=== PATIENT | female | born 1945 | race Two or more races ===

== ENCOUNTER → 2017-08-16 | Outpatient (CLI) | payer MEDICARE, MEDICAID | END | disposition home or self-care (01) | LOC: WOUND 09:12 | PROVIDERS: ATTEND Family Medicine | DX: E11.622 Type 2 diabetes mellitus with other skin ulcer (principal); L97.212 Non-pressure chronic ulcer of right calf with fat layer exposed; I48.0 Paroxysmal atrial fibrillation; E66.01 Morbid (severe) obesity due to excess calories; E03.9 Hypothyroidism, unspecified; E78.5 Hyperlipidemia, unspecified; G47.33 Obstructive sleep apnea (adult) (pediatric); I11.0 Hypertensive heart disease with heart failure; I50.30 Unspecified diastolic (congestive) heart failure; Z79.01 Long term (current) use of anticoagulants; Z72.89 Other problems related to lifestyle; Z68.41 Body mass index [BMI] 40.0-44.9, adult | CPT/HCPCS: 11042; G0463; 99205; WOU0463 ==

== ENCOUNTER 2017-09-21 04:02 | Inpatient (IN) | payer MEDICARE, MEDICAID ==
[~2017-09-21] VITALS: Ht 149.9 cm; Wt 106.6 kg
[2017-09-21] MEDS ORDERED: SODIUM CHLORIDE FLUSH 10ML SYR IVF ONE (05:30)
[2017-09-21] MEDS ORDERED: MAALOX/HYOSCYAMINE/LIDOCAINE 45 ML BTL PO ONE (05:30)
[2017-09-21] MEDS ORDERED: ONDANSETRON 2MG/ML, 2ML IVPush ONE (05:30)
[2017-09-21] MEDS ORDERED: FAMOTIDINE 20 MG/2 ML IVP ONE (05:30)
[2017-09-21] MEDS ORDERED: MORPHINE SULFATE 4 MG/ML, 1ML IVPush PRN (05:30)
[2017-09-21] MEDS ORDERED: MORPHINE SULFATE 4 MG/ML, 1ML ONE (05:49)
[2017-09-21] MEDS ORDERED: MAALOX/HYOSCYAMINE/LIDOCAINE 45 ML BTL ONE (05:49)
[2017-09-21] MEDS ORDERED: ONDANSETRON 2MG/ML, 2ML ONE (05:49)
[2017-09-21] MEDS ORDERED: FAMOTIDINE 20 MG/2 ML ONE (05:50)
[2017-09-21 06:27] LABS: INTERNATIONAL NORMALIZED RATIO 1.74 (0.93-1.1); PROTHROMBIN TIME 17.9 Seconds (9.6-11.5)
[2017-09-21 06:29] LABS: MEAN CORPUSCULAR HEMOGLOBIN 31.4 pg (27.0-34.8); MEAN CORPUSCULAR VOLUME 92.1 fL (80-100); MEAN PLATELET VOLUME 10.1 fL (7.4-10.4); PLATELET COUNT 136 x10^3/uL (130-400); RED BLOOD COUNT 3.55 x10^6/uL (3.82-5.3); RED CELL DISTRIBUTION WIDTH 23.3 % (9.6-15.2)
[2017-09-21 06:32] LABS: ALBUMIN 2.9 g/dL (3.4-5.0); ANION GAP 16 mmol/L (5-15); CALCIUM 8.1 mg/dL (8.5-10.1); CHLORIDE 78 mmol/L (98-107)
[2017-09-21 06:35] LABS: ALANINE AMINOTRANSFERASE 31 U/L (12-78); ALKALINE PHOSPHATASE 158 U/L (45-117); BILIRUBIN,TOTAL 2.9 mg/dL (0.2-1.0); CREATININE 0.57 mg/dL (0.55-1.02); TOTAL PROTEIN 7.5 g/dL (6.4-8.2)
[2017-09-21 06:39] LABS: ACETONE, SERUM Negative (Negative)
[2017-09-21 06:53] LABS: ANISOCYTOSIS 2+; BASOPHILS # (AUTO) 0.08 x10^3/uL (0-0.1); BASOPHILS % (AUTO) 2 % (0-1); EOSINOPHILS # (AUTO) 0.08 x10^3/uL (0-0.4); EOSINOPHILS % (AUTO) 2 % (1-7); LYMPHOCYTES # (AUTO) 0.75 x10^3/uL (1-3.4); LYMPHOCYTES % (AUTO) 16 % (22-44); MD MORPH REVIEW ONLY; MONOCYTES # (AUTO) 0.49 x10^3/uL (0.2-0.8); MONOCYTES % (AUTO) 11 % (2-9); NEUTROPHILS # (AUTO) 3.24 x10^3/uL (1.8-6.8); NEUTROPHILS % (AUTO) 70 % (42-75)
[2017-09-21 06:54] LABS: MICROCYTOSIS 1+; POLYCHROMASIA 1+; TARGET CELLS 1+
[2017-09-21 06:55] LABS: <PLATELET ESTIMATE> ADEQUATE; LARGE PLATELETS 1+
[2017-09-21 07:13] LABS: TROPONIN I 0.043 ng/mL (0.000-0.045)
[2017-09-21] MEDS ORDERED: POTASSIUM CHLORIDE 40 MEQ in SODIUM CHLORIDE 0.9% 500 ML IV ONE (08:00)
[2017-09-21] MEDS ORDERED: METF500T4 PO (08:17)
[2017-09-21] MEDS ORDERED: BUME1TAB21 PO (08:17)
[2017-09-21] MEDS ORDERED: ATOR20TA PO (08:17)
[2017-09-21] MEDS ORDERED: METO2.5T PO (08:17)
[2017-09-21] MEDS ORDERED: SULF1TAB24 PO (08:17)
[2017-09-21] MEDS ORDERED: WARF5TAB7 PO (08:17)
[2017-09-21] MEDS ORDERED: LEVO150T5 PO (08:17)
[2017-09-21] MEDS ORDERED: POTA20TA14 PO (08:17)
[2017-09-21] MEDS ORDERED: METO50TA82 PO (08:17)
[2017-09-21] MEDS ORDERED: GLUCAGON 1 MG IM PRN (08:30)
[2017-09-21] MEDS ORDERED: DEXTROSE 4 GM TAB.CHEW PO PRN (08:30)
[2017-09-21] MEDS ORDERED: ACETAMINOPHEN 325 MG TABLET PO PRN (08:30)
[2017-09-21] MEDS ORDERED: POTASSIUM CHLORIDE 40 MEQ in D5%-LACTATED RINGERS 1,000 ML IV SCH (08:30)
[2017-09-21] MEDS ORDERED: LACTULOSE 3.3 GM/5 ML ORAL.SOL RC ONE (08:30)
[2017-09-21] MEDS ORDERED: ONDANSETRON 2MG/ML, 2ML IVPush PRN (08:30)
[2017-09-21] MEDS ORDERED: DEXTROSE 50%, 50ML SYRINGE IVPush PRN (08:30)
[2017-09-21] MEDS ORDERED: LIDOCAINE 1%, 10ML ONE (08:31)
[2017-09-21] MEDS ORDERED: BUMETANIDE 1 MG TABLET PO SCH (09:00)
[2017-09-21] MEDS ORDERED: METOPROLOL TARTRATE 50 MG TABLET PO SCH (09:00)
[2017-09-21] MEDS ORDERED: POTASSIUM CHLORIDE 20 MEQ TAB.ER.PRT ONE (09:10)
[2017-09-21] MEDS: POTASSIUM CHLORIDE 20 MEQ TAB.ER.PRT PO SCH ×3 (09:12→17:19)
[2017-09-21 10:35] VITALS: BP 126/82
[2017-09-21 11:04] VITALS: BP 139/84
[2017-09-21] MEDS: BUMETANIDE 1 MG TABLET PO SCH ×2 (12:23→20:17)
[2017-09-21] MEDS: SULFAMETH./TRIMETHOPRIM DS 800MG/160MG TABLET PO SCH ×2 (12:23→20:17)
[2017-09-21] MEDS: LEVOTHYROXINE 150 MCG TABLET PO SCH (12:23)
[2017-09-21] MEDS: METOPROLOL TARTRATE 50 MG TABLET PO SCH ×2 (12:24→20:18)
[2017-09-21] MEDS: RIFAXIMIN 550 MG TABLET PO SCH ×2 (12:24→20:18)
[2017-09-21] MEDS: SODIUM CHLORIDE FLUSH 10ML SYR IVF SCH ×2 (12:24→20:17)
[2017-09-21] MEDS: INSULIN ASPART 100 UNITS/ML, PEN SQ-INSULIN SCH ×3 (13:14→20:26)
[2017-09-21 14:30] VITALS: BP 116/75
[2017-09-21] MEDS: LACTULOSE 20 GM/30 ML UDC PO SCH ×4 (15:46→21:00)
[2017-09-21 20:18] VITALS: BP 132/80
[2017-09-21] MEDS: ATORVASTATIN 20 MG TABLET PO SCH (20:18)
[2017-09-22 05:22] LABS: CHLORIDE 81 mmol/L (98-107)
[2017-09-22 05:31] LABS: ANION GAP 11 mmol/L (5-15); CREATININE 0.77 mg/dL (0.55-1.02)
[2017-09-22 06:13] LABS: BASOPHILS # (AUTO) 0.02 x10^3/uL (0-0.1); BASOPHILS % (AUTO) 1 % (0-1); EOSINOPHILS # (AUTO) 0.09 x10^3/uL (0-0.4); EOSINOPHILS % (AUTO) 2 % (1-7); LYMPHOCYTES % (AUTO) 16 % (22-44); MD MORPH REVIEW ONLY; MEAN CORPUSCULAR HEMOGLOBIN 31.5 pg (27.0-34.8); MEAN CORPUSCULAR HGB CONC 33.5 g/dL (32.4-35.8); MEAN PLATELET VOLUME 9.7 fL (7.4-10.4); MONOCYTES # (AUTO) 0.67 x10^3/uL (0.2-0.8); MONOCYTES % (AUTO) 15 % (2-9); NEUTROPHILS # (AUTO) 2.84 x10^3/uL (1.8-6.8); NEUTROPHILS % (AUTO) 66 % (42-75); PLATELET COUNT 137 x10^3/uL (130-400); RED BLOOD COUNT 3.43 x10^6/uL (3.82-5.3); RED CELL DISTRIBUTION WIDTH 24.1 % (9.6-15.2)
[2017-09-22 06:14] LABS: ANISOCYTOSIS 2+; MICROCYTOSIS 1+; POLYCHROMASIA 1+
[2017-09-22 06:15] LABS: <PLATELET ESTIMATE> ADEQUATE; TARGET CELLS 1+
[2017-09-22 06:16] LABS: LARGE PLATELETS 1+
[2017-09-22 06:35] LABS: INTERNATIONAL NORMALIZED RATIO 2.09 (0.93-1.1); PROTHROMBIN TIME 21.4 Seconds (9.6-11.5)
[2017-09-22] MEDS: INSULIN ASPART 100 UNITS/ML, PEN SQ-INSULIN SCH ×4 (07:00→20:29)
[2017-09-22] MEDS ORDERED: MAGNESIUM SULFATE PMX 2GM/50ML 50 ML IV ONE (08:00)
[2017-09-22] MEDS ORDERED: POTASSIUM CHLORIDE 20 MEQ TAB.ER.PRT PO ONE ×3 (08:00→21:30)
[2017-09-22 08:42] VITALS: BP 118/65
[2017-09-22] MEDS ORDERED: FUROSEMIDE 40 MG/4 ML ONE (08:53)
[2017-09-22] MEDS ORDERED: FUROSEMIDE 20 MG/2 ML ONE (08:53)
[2017-09-22 08:57] LABS: ALBUMIN 2.9 g/dL (3.4-5.0); ANION GAP 12 mmol/L (5-15); CALCIUM 8.1 mg/dL (8.5-10.1); CHLORIDE 83 mmol/L (98-107); CREATININE 0.69 mg/dL (0.55-1.02)
[2017-09-22] MEDS: FOLIC ACID 1 MG TABLET PO SCH (09:00)
[2017-09-22] MEDS ORDERED: FUROSEMIDE 100 MG/10 ML IV ONE (09:00)
[2017-09-22 09:05] LABS: TROPONIN I 0.038 ng/mL (0.000-0.045)
[2017-09-22 09:17] LABS: FREE T4 (FREE THYROXINE) 1.32 ng/dL (0.76-1.46); THYROID STIMULATING HORMONE 10.7 mIU/L (0.358-3.740)
[2017-09-22] MEDS: RIFAXIMIN 550 MG TABLET PO SCH ×2 (09:28→20:26)
[2017-09-22] MEDS: THIAMINE 100MG TABLET PO SCH (09:29)
[2017-09-22] MEDS: METOPROLOL TARTRATE 50 MG TABLET PO SCH ×2 (09:29→20:26)
[2017-09-22] MEDS: LEVOTHYROXINE 150 MCG TABLET PO SCH (09:29)
[2017-09-22] MEDS: LACTULOSE 20 GM/30 ML UDC PO SCH ×3 (09:29→20:27)
[2017-09-22] MEDS: SODIUM CHLORIDE FLUSH 10ML SYR IVF SCH ×2 (09:30→20:29)
[2017-09-22 12:03] LABS: MICROSCOPIC NOT IND
[2017-09-22 12:08] LABS: OSMOLALITY,URINE 250 mOsm/kg (500-850)
[2017-09-22 12:10] LABS: CHLORIDE,URINE RANDOM 120 mmol/L; POTASSIUM,URINE RANDOM 30 mmol/L; SODIUM,URINE RANDOM 86 mmol/L
[2017-09-22 12:12] LABS: CREATININE,URINE RANDOM < 13.00 mg/dL
[2017-09-22 12:38] LABS: CULTURE INDICATED? NO
[2017-09-22 13:17] LABS: ANION GAP 10 mmol/L (5-15); CALCIUM 8.1 mg/dL (8.5-10.1); CHLORIDE 83 mmol/L (98-107); CREATININE 0.71 mg/dL (0.55-1.02)
[2017-09-22 13:56] VITALS: BP 121/80
[2017-09-22] MEDS ORDERED: POTASSIUM CHLORIDE 20 MEQ TAB.ER.PRT PO SCH (17:00)
[2017-09-22] MEDS ORDERED: FUROSEMIDE 40 MG/4 ML IV SCH (17:00)
[2017-09-22 17:25] LABS: ANION GAP 8 mmol/L (5-15); CALCIUM 8.2 mg/dL (8.5-10.1); CHLORIDE 83 mmol/L (98-107); CREATININE 0.78 mg/dL (0.55-1.02)
[2017-09-22] MEDS ORDERED: WARFARIN 5 MG TABLET PO-COUM ONE (18:00)
[2017-09-22] MEDS ORDERED: WARFARIN 5 MG TABLET PO-COUM SCH (18:00)
[2017-09-22 19:21] VITALS: BP 136/80
[2017-09-22] MEDS: ATORVASTATIN 20 MG TABLET PO SCH (20:26)
[2017-09-22] MEDS ORDERED: LORazepam 2 MG/ML, 1ML IV PRN ×5 (21:30)
[2017-09-22] MEDS ORDERED: LORazepam 1MG TABLET PO PRN ×4 (21:30)
[2017-09-22] MEDS ORDERED: LORazepam 0.5MG TABLET PO PRN (21:30)
[2017-09-23 03:04] VITALS: BP 117/74
[2017-09-23] MEDS ORDERED: LEVOTHYROXINE 75 MCG TABLET ONE (05:01)
[2017-09-23] MEDS: LACTULOSE 20 GM/30 ML UDC PO SCH ×4 (05:15→20:24)
[2017-09-23] MEDS: LEVOTHYROXINE 150 MCG TABLET PO SCH (05:16)
[2017-09-23 05:19] LABS: INTERNATIONAL NORMALIZED RATIO 1.97 (0.93-1.1); PROTHROMBIN TIME 20.2 Seconds (9.6-11.5)
[2017-09-23 05:24] LABS: MEAN CORPUSCULAR HEMOGLOBIN 31.3 pg (27.0-34.8); MEAN CORPUSCULAR HGB CONC 33.2 g/dL (32.4-35.8); MEAN CORPUSCULAR VOLUME 94.4 fL (80-100); MEAN PLATELET VOLUME 9.4 fL (7.4-10.4); PLATELET COUNT 120 x10^3/uL (130-400); RED BLOOD COUNT 3.39 x10^6/uL (3.82-5.3); RED CELL DISTRIBUTION WIDTH 24.5 % (9.6-15.2)
[2017-09-23 05:25] LABS: ALBUMIN 2.9 g/dL (3.4-5.0); ANION GAP 8 mmol/L (5-15); CALCIUM 8.1 mg/dL (8.5-10.1); CHLORIDE 84 mmol/L (98-107); CREATININE 0.82 mg/dL (0.55-1.02)
[2017-09-23 05:57] LABS: BASOPHILS # (AUTO) 0.01 x10^3/uL (0-0.1); BASOPHILS % (AUTO) 0 % (0-1); EOSINOPHILS # (AUTO) 0.14 x10^3/uL (0-0.4); EOSINOPHILS % (AUTO) 4 % (1-7); LYMPHOCYTES # (AUTO) 0.68 x10^3/uL (1-3.4); LYMPHOCYTES % (AUTO) 21 % (22-44); MD SCAN; MONOCYTES # (AUTO) 0.62 x10^3/uL (0.2-0.8); MONOCYTES % (AUTO) 20 % (2-9); NEUTROPHILS % (AUTO) 54 % (42-75)
[2017-09-23] MEDS: INSULIN ASPART 100 UNITS/ML, PEN SQ-INSULIN SCH ×4 (07:00→20:28)
[2017-09-23] MEDS ORDERED: MAGNESIUM SULFATE PMX 2GM/50ML 50 ML IV ONE (07:30)
[2017-09-23] MEDS ORDERED: POTASSIUM CHLORIDE 20 MEQ TAB.ER.PRT PO ONE (07:30)
[2017-09-23 08:02] VITALS: BP 125/67
[2017-09-23 08:02] LABS: HCT (SEDRATE) 31.2 % (34.6-47.8)
[2017-09-23] MEDS: FUROSEMIDE 40 MG/4 ML IV SCH ×2 (08:04→16:45)
[2017-09-23] MEDS: METOPROLOL TARTRATE 50 MG TABLET PO SCH ×2 (09:00→20:25)
[2017-09-23] MEDS: SPIRONOLACTONE 50 MG TABLET PO SCH ×2 (09:00→20:26)
[2017-09-23] MEDS: DOXYCYCLINE 100MG TABLET PO SCH ×2 (11:47→20:25)
[2017-09-23] MEDS: RIFAXIMIN 550 MG TABLET PO SCH ×2 (11:48→20:27)
[2017-09-23] MEDS: THIAMINE 100MG TABLET PO SCH (11:48)
[2017-09-23] MEDS: FOLIC ACID 1 MG TABLET PO SCH (11:48)
[2017-09-23] MEDS: CEFTRIAXONE PMX 2GM/50ML 50 ML IV SCH (11:49)
[2017-09-23] MEDS: SODIUM CHLORIDE FLUSH 10ML SYR IVF SCH ×2 (11:50→20:29)
[2017-09-23 13:28] VITALS: BP 104/69
[2017-09-23 17:50] LABS: ANION GAP 8 mmol/L (5-15); CALCIUM 8.2 mg/dL (8.5-10.1); CHLORIDE 82 mmol/L (98-107); CREATININE 0.85 mg/dL (0.55-1.02)
[2017-09-23] MEDS ORDERED: WARFARIN 7.5 MG TABLET PO-COUM ONE (18:00)
[2017-09-23] MEDS: POTASSIUM CHLORIDE 20 MEQ TAB.ER.PRT PO SCH ×3 (18:12→23:09)
[2017-09-23 18:47] VITALS: BP 112/77
[2017-09-23] MEDS: ATORVASTATIN 20 MG TABLET PO SCH (20:27)
[2017-09-23 23:08] LABS: ANION GAP 7 mmol/L (5-15); CALCIUM 8.3 mg/dL (8.5-10.1); CHLORIDE 84 mmol/L (98-107); CREATININE 0.88 mg/dL (0.55-1.02)
[2017-09-24] MEDS ORDERED: MAGNESIUM SULFATE PMX 2GM/50ML 50 ML IV ONE (00:30)
[2017-09-24 02:30] VITALS: BP 120/80
[2017-09-24] MEDS: LACTULOSE 20 GM/30 ML UDC PO SCH ×4 (04:58→20:17)
[2017-09-24 05:50] LABS: INTERNATIONAL NORMALIZED RATIO 1.73 (0.93-1.1); PROTHROMBIN TIME 17.8 Seconds (9.6-11.5)
[2017-09-24 05:54] LABS: ANION GAP 6 mmol/L (5-15); CHLORIDE 85 mmol/L (98-107)
[2017-09-24 06:02] LABS: MEAN CORPUSCULAR HEMOGLOBIN 30.7 pg (27.0-34.8); MEAN CORPUSCULAR HGB CONC 32.6 g/dL (32.4-35.8); MEAN CORPUSCULAR VOLUME 94.4 fL (80-100); MEAN PLATELET VOLUME 9.6 fL (7.4-10.4); PLATELET COUNT 123 x10^3/uL (130-400); RED BLOOD COUNT 3.51 x10^6/uL (3.82-5.3); RED CELL DISTRIBUTION WIDTH 25.1 % (9.6-15.2)
[2017-09-24 06:08] LABS: ALANINE AMINOTRANSFERASE 28 U/L (12-78); ALBUMIN 2.9 g/dL (3.4-5.0); ALKALINE PHOSPHATASE 141 U/L (45-117); BILIRUBIN,TOTAL 1.3 mg/dL (0.2-1.0); CALCIUM 8.2 mg/dL (8.5-10.1); CREATININE 0.83 mg/dL (0.55-1.02)
[2017-09-24 06:21] LABS: MD YES
[2017-09-24 06:25] LABS: ANISOCYTOSIS 2+; BASOS#(MANUAL) 0.06 x10^3/uL (0-0.1); BASOS% (MANUAL) 2 % (0-1); EOS#(MANUAL) 0.19 x10^3/uL (0.0-0.4); EOS% (MANUAL) 6 % (1-7); LYMPH#(MANUAL) 0.65 x10^3/uL (1-3.4); LYMPHS% (MANUAL) 21 % (22-44); MICROCYTOSIS 1+; MONOS#(MANUAL) 0.19 x10^3/uL (0.3-2.7); MONOS% (MANUAL) 6 % (2-9); POLYCHROMASIA 1+; SEG#(MANUAL) 2.02 x10^3/uL (1.8-6.8); SEGS% (MANUAL) 65 % (42-75)
[2017-09-24 06:26] LABS: <PLATELET ESTIMATE> ADEQUATE; LARGE PLATELETS 1+; TARGET CELLS 1+
[2017-09-24] MEDS ORDERED: POTASSIUM CHLORIDE 20 MEQ TAB.ER.PRT PO ONE ×2 (07:00)
[2017-09-24] MEDS: INSULIN ASPART 100 UNITS/ML, PEN SQ-INSULIN SCH ×4 (07:00→20:26)
[2017-09-24 07:20] VITALS: BP 115/77
[2017-09-24] MEDS: CEFTRIAXONE PMX 2GM/50ML 50 ML IV SCH (08:02)
[2017-09-24] MEDS: FUROSEMIDE 40 MG/4 ML IV SCH ×2 (08:03→16:31)
[2017-09-24] MEDS ORDERED: REGADENOSON 0.4 MG/5 ML SYRINGE ONE (08:09)
[2017-09-24] MEDS: SPIRONOLACTONE 50 MG TABLET PO SCH ×2 (09:00→20:15)
[2017-09-24] MEDS: LEVOTHYROXINE 150 MCG TABLET PO SCH (10:08)
[2017-09-24] MEDS: FOLIC ACID 1 MG TABLET PO SCH (10:08)
[2017-09-24] MEDS: DOXYCYCLINE 100MG TABLET PO SCH ×2 (10:08→20:16)
[2017-09-24] MEDS: RIFAXIMIN 550 MG TABLET PO SCH ×2 (10:08→20:17)
[2017-09-24] MEDS: METOPROLOL TARTRATE 50 MG TABLET PO SCH ×2 (10:08→20:17)
[2017-09-24] MEDS: SODIUM CHLORIDE FLUSH 10ML SYR IVF SCH ×2 (10:08→20:28)
[2017-09-24] MEDS: THIAMINE 100MG TABLET PO SCH (10:09)
[2017-09-24 13:24] VITALS: BP 110/74
[2017-09-24 14:35] LABS: ANION GAP 9 mmol/L (5-15); CALCIUM 8.5 mg/dL (8.5-10.1); CHLORIDE 86 mmol/L (98-107)
[2017-09-24] MEDS ORDERED: WARFARIN 10 MG TABLET PO-COUM ONE (18:00)
[2017-09-24 20:15] VITALS: BP 102/68
[2017-09-24] MEDS: ATORVASTATIN 20 MG TABLET PO SCH (20:17)
[2017-09-25 02:49] VITALS: BP 104/64
[2017-09-25] MEDS: LACTULOSE 20 GM/30 ML UDC PO SCH ×4 (05:44→21:00)
[2017-09-25] MEDS: LEVOTHYROXINE 150 MCG TABLET PO SCH (05:47)
[2017-09-25 06:02] LABS: MEAN CORPUSCULAR HEMOGLOBIN 31.6 pg (27.0-34.8); MEAN CORPUSCULAR VOLUME 95.7 fL (80-100); MEAN PLATELET VOLUME 9.4 fL (7.4-10.4); PLATELET COUNT 111 x10^3/uL (130-400); RED BLOOD COUNT 3.43 x10^6/uL (3.82-5.3); RED CELL DISTRIBUTION WIDTH 25.2 % (9.6-15.2)
[2017-09-25 06:11] LABS: CHLORIDE 87 mmol/L (98-107)
[2017-09-25 06:15] LABS: ALBUMIN 2.9 g/dL (3.4-5.0); ANION GAP 10 mmol/L (5-15); CALCIUM 8.2 mg/dL (8.5-10.1); CREATININE 0.94 mg/dL (0.55-1.02)
[2017-09-25 06:34] LABS: MD YES
[2017-09-25 06:38] LABS: EOS#(MANUAL) 0.14 x10^3/uL (0.0-0.4); EOS% (MANUAL) 5 % (1-7); LYMPH#(MANUAL) 0.84 x10^3/uL (1-3.4); LYMPHS% (MANUAL) 31 % (22-44); NRBC % (MANUAL) 1 % (0-1)
[2017-09-25 06:39] LABS: BASOS#(MANUAL) 0.05 x10^3/uL (0-0.1); BASOS% (MANUAL) 2 % (0-1); MONOS#(MANUAL) 0.35 x10^3/uL (0.3-2.7); MONOS% (MANUAL) 13 % (2-9); SEG#(MANUAL) 1.32 x10^3/uL (1.8-6.8); SEGS% (MANUAL) 49 % (42-75)
[2017-09-25 06:40] LABS: ANISOCYTOSIS 2+; MICROCYTOSIS 1+
[2017-09-25 06:41] LABS: <PLATELET ESTIMATE> DECREASED; LARGE PLATELETS 1+; POLYCHROMASIA 1+; TARGET CELLS 1+
[2017-09-25 06:53] LABS: INTERNATIONAL NORMALIZED RATIO 2.13 (0.93-1.1); PROTHROMBIN TIME 21.8 Seconds (9.6-11.5)
[2017-09-25] MEDS ORDERED: POTASSIUM CHLORIDE 20 MEQ TAB.ER.PRT PO ONE (07:00)
[2017-09-25] MEDS: INSULIN ASPART 100 UNITS/ML, PEN SQ-INSULIN SCH ×2 (07:00→11:00)
[2017-09-25] MEDS: RIFAXIMIN 550 MG TABLET PO SCH ×2 (08:45→21:15)
[2017-09-25] MEDS: FOLIC ACID 1 MG TABLET PO SCH (08:46)
[2017-09-25] MEDS: DOXYCYCLINE 100MG TABLET PO SCH ×2 (08:46→21:15)
[2017-09-25] MEDS: SODIUM CHLORIDE FLUSH 10ML SYR IVF SCH ×2 (08:47→21:15)
[2017-09-25] MEDS: METOPROLOL TARTRATE 50 MG TABLET PO SCH ×2 (08:47→21:15)
[2017-09-25] MEDS: FUROSEMIDE 40 MG/4 ML IV SCH ×2 (08:47→17:49)
[2017-09-25] MEDS: SPIRONOLACTONE 50 MG TABLET PO SCH ×2 (08:47→21:00)
[2017-09-25] MEDS: THIAMINE 100MG TABLET PO SCH (08:47)
[2017-09-25] MEDS: CEFTRIAXONE PMX 2GM/50ML 50 ML IV SCH (08:48)
[2017-09-25 08:49] VITALS: BP 119/69
[2017-09-25] MEDS ORDERED: SODIUM PHOSPHATE 4 MEQ/ML IV SCH (10:00)
[2017-09-25] MEDS ORDERED: SODIUM PHOSPHATE 30 MMOL in SODIUM CHLORIDE 0.9% 500 ML IV ONE (10:30)
[2017-09-25 15:27] VITALS: BP 113/80
[2017-09-25] MEDS ORDERED: WARFARIN 2.5 MG TABLET PO-COUM SCH (18:00)
[2017-09-25 20:00] VITALS: BP 113/83
[2017-09-25] MEDS: ATORVASTATIN 20 MG TABLET PO SCH (21:15)
[2017-09-26 01:51] VITALS: BP 109/75
[2017-09-26] MEDS: LEVOTHYROXINE 150 MCG TABLET PO SCH (05:53)
[2017-09-26] MEDS: LACTULOSE 20 GM/30 ML UDC PO SCH ×4 (05:53→21:45)
[2017-09-26 05:54] LABS: INTERNATIONAL NORMALIZED RATIO 2.72 (0.93-1.1); PROTHROMBIN TIME 27.7 Seconds (9.6-11.5)
[2017-09-26] MEDS ORDERED: SODIUM PHOSPHATE 4 MEQ/ML IV SCH (07:00)
[2017-09-26] MEDS ORDERED: POTASSIUM CHLORIDE 20 MEQ TAB.ER.PRT PO ONE (07:00)
[2017-09-26] MEDS ORDERED: SODIUM PHOSPHATE 30 MMOL in SODIUM CHLORIDE 0.9% 500 ML IV ONE (07:30)
[2017-09-26 07:42] LABS: ANION GAP 8 mmol/L (5-15); CALCIUM 8.6 mg/dL (8.5-10.1); CHLORIDE 90 mmol/L (98-107)
[2017-09-26 08:11] LABS: MEAN CORPUSCULAR HEMOGLOBIN 31.2 pg (27.0-34.8); MEAN CORPUSCULAR HGB CONC 32.7 g/dL (32.4-35.8); MEAN CORPUSCULAR VOLUME 95.3 fL (80-100); MEAN PLATELET VOLUME 9.6 fL (7.4-10.4); PLATELET COUNT 88 x10^3/uL (130-400); RED BLOOD COUNT 3.65 x10^6/uL (3.82-5.3)
[2017-09-26 08:12] LABS: MD YES
[2017-09-26 08:19] LABS: BASOS#(MANUAL) 0.11 x10^3/uL (0-0.1); BASOS% (MANUAL) 4 % (0-1); EOS% (MANUAL) 7 % (1-7); LYMPH#(MANUAL) 0.76 x10^3/uL (1-3.4); LYMPHS% (MANUAL) 27 % (22-44); MONOS#(MANUAL) 0.78 x10^3/uL (0.3-2.7); MONOS% (MANUAL) 28 % (2-9); REACTIVE LYMPHS # (MANUAL) 0.03 x10^3/uL (0-0); REACTIVE LYMPHS % (MANUAL) 1 % (0-0); SEG#(MANUAL) 0.92 x10^3/uL (1.8-6.8); SEGS% (MANUAL) 33 % (42-75)
[2017-09-26 08:20] LABS: <PLATELET ESTIMATE> DECREASED; LARGE PLATELETS 1+
[2017-09-26 08:24] LABS: ANISOCYTOSIS 2+
[2017-09-26 08:26] LABS: TARGET CELLS 2+
[2017-09-26 08:30] VITALS: BP 127/80
[2017-09-26] MEDS: SPIRONOLACTONE 50 MG TABLET PO SCH ×2 (09:00→21:00)
[2017-09-26] MEDS: SODIUM CHLORIDE FLUSH 10ML SYR IVF SCH ×2 (09:00→21:44)
[2017-09-26] MEDS: THIAMINE 100MG TABLET PO SCH (09:55)
[2017-09-26] MEDS: FOLIC ACID 1 MG TABLET PO SCH (09:55)
[2017-09-26] MEDS: RIFAXIMIN 550 MG TABLET PO SCH ×2 (09:55→21:45)
[2017-09-26] MEDS: DOXYCYCLINE 100MG TABLET PO SCH ×2 (09:55→21:45)
[2017-09-26] MEDS: METOPROLOL TARTRATE 50 MG TABLET PO SCH ×2 (09:55→21:45)
[2017-09-26] MEDS: CEFTRIAXONE PMX 2GM/50ML 50 ML IV SCH (09:55)
[2017-09-26] MEDS: FUROSEMIDE 40 MG/4 ML IV SCH ×2 (09:55→17:27)
[2017-09-26] MEDS ORDERED: MAGNESIUM SULFATE PMX 2GM/50ML 50 ML IV ONE (11:00)
[2017-09-26 13:38] VITALS: BP 111/74
[2017-09-26] MEDS ORDERED: WARFARIN 1 MG TABLET PO-COUM SCH (18:00)
[2017-09-26 19:40] VITALS: BP 121/91
[2017-09-26] MEDS: ATORVASTATIN 20 MG TABLET PO SCH (21:45)
[2017-09-27 00:58] VITALS: BP 127/84
[2017-09-27 01:41] LABS: OCCULT BLOOD NEGATIVE (NEGATIVE)
[2017-09-27 05:43] LABS: INTERNATIONAL NORMALIZED RATIO 2.83 (0.93-1.1); PROTHROMBIN TIME 28.8 Seconds (9.6-11.5)
[2017-09-27 05:57] LABS: MD YES; MEAN CORPUSCULAR HEMOGLOBIN 31.2 pg (27.0-34.8); MEAN CORPUSCULAR HGB CONC 32.8 g/dL (32.4-35.8); MEAN PLATELET VOLUME 10.5 fL (7.4-10.4); PLATELET COUNT 117 x10^3/uL (130-400); RED BLOOD COUNT 3.52 x10^6/uL (3.82-5.3); RED CELL DISTRIBUTION WIDTH 24.4 % (9.6-15.2)
[2017-09-27 06:00] LABS: <PLATELET ESTIMATE> DECREASED; <PLT MORPHOLOGY> NORMAL PLT MORPH; ANISOCYTOSIS 2+; BASOS#(MANUAL) 0.03 x10^3/uL (0-0.1); BASOS% (MANUAL) 1 % (0-1); EOS#(MANUAL) 0.15 x10^3/uL (0.0-0.4); EOS% (MANUAL) 5 % (1-7); LYMPH#(MANUAL) 0.96 x10^3/uL (1-3.4); LYMPHS% (MANUAL) 33 % (22-44); MONOS#(MANUAL) 0.61 x10^3/uL (0.3-2.7); MONOS% (MANUAL) 21 % (2-9); PMNS WITH VACUOLES 1+; SEG#(MANUAL) 1.16 x10^3/uL (1.8-6.8); SEGS% (MANUAL) 40 % (42-75)
[2017-09-27 06:02] LABS: TARGET CELLS 1+
[2017-09-27] MEDS: LEVOTHYROXINE 150 MCG TABLET PO SCH (06:13)
[2017-09-27] MEDS: LACTULOSE 20 GM/30 ML UDC PO SCH ×2 (06:13→11:00)
[2017-09-27] MEDS ORDERED: CEFTRIAXONE 2,000 MG in DEXTROSE 5% 50 ML IV SCH (07:30)
[2017-09-27 07:32] VITALS: BP 109/71
[2017-09-27 08:15] LABS: ANION GAP 8 mmol/L (5-15); CALCIUM 8.4 mg/dL (8.5-10.1); CHLORIDE 90 mmol/L (98-107); CREATININE 0.94 mg/dL (0.55-1.02)
[2017-09-27] MEDS: FUROSEMIDE 40 MG/4 ML IV SCH (08:17)
[2017-09-27] MEDS: FOLIC ACID 1 MG TABLET PO SCH (08:18)
[2017-09-27] MEDS: SPIRONOLACTONE 50 MG TABLET PO SCH (08:18)
[2017-09-27] MEDS: THIAMINE 100MG TABLET PO SCH (08:18)
[2017-09-27] MEDS: METOPROLOL TARTRATE 50 MG TABLET PO SCH (08:18)
[2017-09-27] MEDS: DOXYCYCLINE 100MG TABLET PO SCH (08:18)
[2017-09-27] MEDS: SODIUM CHLORIDE FLUSH 10ML SYR IVF SCH (08:18)
[2017-09-27] MEDS: RIFAXIMIN 550 MG TABLET PO SCH (08:18)
[2017-09-27] MEDS ORDERED: AMOX1TAB64 PO (09:29)
[2017-09-27] MEDS ORDERED: SPIR50TA PO (09:29)
[2017-09-27] MEDS ORDERED: FURO40TA6 PO (09:29)
[2017-09-27] MEDS ORDERED: DOXY100T PO (09:29)
[2017-09-27] MEDS ORDERED: RIFA550T4 PO (09:29)
[2017-09-27] MEDS ORDERED: METO50TA82 PO (09:29)
[2017-09-27] MEDS ORDERED: THIA100T6 PO (09:29)
[2017-09-27] MEDS ORDERED: POTASSIUM CHLORIDE 20 MEQ TAB.ER.PRT PO ONE (09:30)
[2017-09-27] MEDS ORDERED: POTA20PA25 PO (09:30)
[2017-09-27 13:55] VITALS: BP 114/75
[2017-09-27] MEDS ORDERED: WARFARIN 2 MG TABLET PO-COUM SCH (18:00)
== END 2017-09-27 17:01 | DRG 433 ==
LOC: ED 07:27 → EDIP 07:28 → ED 08:12 → 4EST 10:51
PROVIDERS: ADMIT Internal Medicine; ATTEND Internal Medicine
DX: K70.40 Alcoholic hepatic failure without coma (principal); E44.0 Moderate protein-calorie malnutrition; K70.30 Alcoholic cirrhosis of liver without ascites; D61.818 Other pancytopenia; D68.69 Other thrombophilia; E11.622 Type 2 diabetes mellitus with other skin ulcer; E11.51 Type 2 diabetes mellitus with diabetic peripheral angiopathy without gangrene; E11.649 Type 2 diabetes mellitus with hypoglycemia without coma; I48.91 Unspecified atrial fibrillation; E66.01 Morbid (severe) obesity due to excess calories; E87.1 Hypo-osmolality and hyponatremia; L97.919 Non-pressure chronic ulcer of unspecified part of right lower leg with unspecified severity; L03.90 Cellulitis, unspecified; Z68.42 Body mass index [BMI] 45.0-49.9, adult; I50.9 Heart failure, unspecified; E87.8 Other disorders of electrolyte and fluid balance, not elsewhere classified; I87.8 Other specified disorders of veins; E83.42 Hypomagnesemia; I89.0 Lymphedema, not elsewhere classified; I70.209 Unspecified atherosclerosis of native arteries of extremities, unspecified extremity; S80.921A Unspecified superficial injury of right lower leg, initial encounter; X58.XXXA Exposure to other specified factors, initial encounter; E87.6 Hypokalemia; I11.0 Hypertensive heart disease with heart failure; Z79.01 Long term (current) use of anticoagulants; Z79.899 Other long term (current) drug therapy; Z91.14 Patient's other noncompliance with medication regimen; Y93.89 Activity, other specified; Y92.89 Other specified places as the place of occurrence of the external cause; Y99.8 Other external cause status; Z71.41 Alcohol abuse counseling and surveillance of alcoholic
CPT/HCPCS: 36415; 49083; 71045; 74022; 76700; 80048; 80053; 81003; 82010; 82040; 82140; 82272; 82436; 82570; 82962; 83605; 83690; 83735; 83880; 83930; 83935; 84100; 84133; 84300; 84439; 84443; 84484; 85025; 85610; 85651; 86141; 87070; 87077; 87147; 87186; 87205; 93005; 93922; 93925; 96365; 96375; C8929; J0696; J1815; J1940; J2405; J2785; J3480; J3490; J2060; J3475; J7040; S0028

== ENCOUNTER 2017-10-10 14:28 | Inpatient (IN) | payer MEDICARE, MEDICAID ==
[~2017-10-10] VITALS: Ht 160 cm; Wt 131.1 kg
[~2017-10-10 14:28] MED LIST: AMOX1TAB64 PO; ATOR20TA PO; BUME1TAB21 PO; DOXY100T PO; FURO40TA6 PO; LEVO150T5 PO; METF500T4 PO; METO2.5T PO; METO50TA82 PO; POTA20PA25 PO; POTA20TA14 PO; RIFA550T4 PO; SPIR50TA PO; SULF1TAB24 PO; THIA100T6 PO; WARF5TAB7 PO
[2017-10-10] MEDS ORDERED: SODIUM CHLORIDE FLUSH 10ML SYR IVF ONE (15:00)
[2017-10-10] MEDS ORDERED: ATROPINE SYRINGE 0.1 MG/ML, 10ML ONE (15:10)
[2017-10-10 15:29] LABS: MEAN CORPUSCULAR HEMOGLOBIN 30.7 pg (27.0-34.8); MEAN CORPUSCULAR HGB CONC 32.7 g/dL (32.4-35.8); MEAN CORPUSCULAR VOLUME 94.1 fL (80-100); MEAN PLATELET VOLUME 9.9 fL (7.4-10.4); PLATELET COUNT 180 x10^3/uL (130-400); RED BLOOD COUNT 3.42 x10^6/uL (3.82-5.3)
[2017-10-10 15:37] LABS: ALBUMIN 2.9 g/dL (3.4-5.0); ANION GAP 9 mmol/L (5-15); CALCIUM 8.1 mg/dL (8.5-10.1); CHLORIDE 94 mmol/L (98-107); INTERNATIONAL NORMALIZED RATIO 2.18 (0.93-1.1); PROTHROMBIN TIME 22.3 Seconds (9.6-11.5)
[2017-10-10 15:42] LABS: ALANINE AMINOTRANSFERASE 30 U/L (12-78); ALKALINE PHOSPHATASE 229 U/L (45-117); BILIRUBIN,TOTAL 1.3 mg/dL (0.2-1.0); CREATININE 1.45 mg/dL (0.55-1.02); TOTAL PROTEIN 7.8 g/dL (6.4-8.2); TROPONIN I 0.022 ng/mL (0.000-0.045)
[2017-10-10 15:49] LABS: <PLATELET ESTIMATE> ADEQUATE; ANISOCYTOSIS 1+; BASOPHILS # (AUTO) 0.07 x10^3/uL (0-0.1); BASOPHILS % (AUTO) 1 % (0-1); EOSINOPHILS # (AUTO) 0.23 x10^3/uL (0-0.4); EOSINOPHILS % (AUTO) 5 % (1-7); HYPOCHROMIA 1+; LARGE PLATELETS 1+; LYMPHOCYTES # (AUTO) 0.83 x10^3/uL (1-3.4); LYMPHOCYTES % (AUTO) 17 % (22-44); MD MORPH REVIEW ONLY; MONOCYTES % (AUTO) 14 % (2-9); NEUTROPHILS # (AUTO) 3.22 x10^3/uL (1.8-6.8); NEUTROPHILS % (AUTO) 64 % (42-75); POLYCHROMASIA 1+
[2017-10-10 15:50] LABS: OVALOCYTES 1+; TARGET CELLS 1+
[2017-10-10] MEDS ORDERED: DEXTROSE 50%, 50ML SYRINGE ONE (16:15)
[2017-10-10] MEDS ORDERED: DOPAMINE/D5W PMX 250 ML ONE (16:20)
[2017-10-10] MEDS ORDERED: ACETAMINOPHEN 325 MG TABLET PO PRN (16:30)
[2017-10-10] MEDS ORDERED: POLYETHYLENE GLYCOL 17 GM PACKET PO PRN (16:30)
[2017-10-10] MEDS ORDERED: ONDANSETRON 2MG/ML, 2ML IVPush PRN (16:30)
[2017-10-10] MEDS ORDERED: DOPAMINE/D5W PMX 250 ML IV PRN ×2 (16:30)
[2017-10-10] MEDS ORDERED: DEXTROSE 50%, 50ML SYRINGE IVPush ONE (16:30)
[2017-10-10] MEDS: D5%-0.9% NACL 1,000 ML IV SCH (17:11)
[2017-10-10 17:18] LABS: TROPONIN I 0.025 ng/mL (0.000-0.045)
[2017-10-10] MEDS ORDERED: SODIUM CHLORIDE 0.9%, 500ML IVBOLUS ONE (17:30)
[2017-10-10] MEDS ORDERED: ATROPINE SYRINGE 0.1 MG/ML, 10ML IVPush ONE (17:30)
[2017-10-10 17:36] LABS: FREE T4 (FREE THYROXINE) 1.37 ng/dL (0.76-1.46)
[2017-10-10 18:26] VITALS: BP 134/64
[2017-10-10] MEDS ORDERED: WARFARIN 2.5 MG TABLET PO-COUM ONE (19:00)
[2017-10-10] MEDS: RIFAXIMIN 550 MG TABLET PO SCH (19:57)
[2017-10-10] MEDS: ATORVASTATIN 20 MG TABLET PO SCH (19:57)
[2017-10-10 22:52] LABS: TROPONIN I 0.048 ng/mL (0.000-0.045)
[2017-10-10 23:32] LABS: ANION GAP 10 mmol/L (5-15); CALCIUM 7.9 mg/dL (8.5-10.1); CHLORIDE 95 mmol/L (98-107); CREATININE 1.49 mg/dL (0.55-1.02)
[2017-10-11] MEDS ORDERED: DEXTROSE 50%, 50ML SYRINGE IVPush ONE
[2017-10-11] MEDS ORDERED: INSULIN LISPRO 100 UNITS/ML, PEN SQ-INSULIN ONE
[2017-10-11] MEDS ORDERED: VASOPRESSIN 100 UNIT in SODIUM CHLORIDE 0.9% 495 ML IV PRN
[2017-10-11] MEDS ORDERED: INSULIN ASPART 100 UNITS/ML, PEN ONE (00:06)
[2017-10-11] MEDS ORDERED: INSULIN REGULAR 100 UNITS/ML, 3ML VIAL IVPush ONE (00:30)
[2017-10-11 00:41] LABS: MICROSCOPIC INDICATED
[2017-10-11 00:42] LABS: CULTURE INDICATED? NO
[2017-10-11] MEDS ORDERED: ATROPINE SYRINGE 0.1 MG/ML, 10ML IVPush PRN (02:00)
[2017-10-11] MEDS: D5%-0.9% NACL 1,000 ML IV SCH ×3 (02:56→23:18)
[2017-10-11 04:21] LABS: MEAN CORPUSCULAR HEMOGLOBIN 30.2 pg (27.0-34.8); MEAN CORPUSCULAR HGB CONC 32.5 g/dL (32.4-35.8); MEAN PLATELET VOLUME 9.4 fL (7.4-10.4); PLATELET COUNT 226 x10^3/uL (130-400); RED BLOOD COUNT 3.59 x10^6/uL (3.82-5.3); RED CELL DISTRIBUTION WIDTH 23.1 % (9.6-15.2)
[2017-10-11 04:29] LABS: INTERNATIONAL NORMALIZED RATIO 2.18 (0.93-1.1); PROTHROMBIN TIME 22.3 Seconds (9.6-11.5)
[2017-10-11 04:35] LABS: ALANINE AMINOTRANSFERASE 30 U/L (12-78); ANION GAP 9 mmol/L (5-15); CHLORIDE 95 mmol/L (98-107); CREATININE 1.47 mg/dL (0.55-1.02)
[2017-10-11 04:38] LABS: ALKALINE PHOSPHATASE 222 U/L (45-117); BILIRUBIN,TOTAL 1.2 mg/dL (0.2-1.0); TOTAL PROTEIN 7.9 g/dL (6.4-8.2)
[2017-10-11 04:40] LABS: ANISOCYTOSIS 2+; BASOPHILS # (AUTO) 0.01 x10^3/uL (0-0.1); BASOPHILS % (AUTO) 0 % (0-1); EOSINOPHILS # (AUTO) 0.18 x10^3/uL (0-0.4); EOSINOPHILS % (AUTO) 3 % (1-7); LYMPHOCYTES # (AUTO) 0.57 x10^3/uL (1-3.4); LYMPHOCYTES % (AUTO) 9 % (22-44); MD MORPH REVIEW ONLY; MONOCYTES # (AUTO) 0.88 x10^3/uL (0.2-0.8); MONOCYTES % (AUTO) 14 % (2-9); NEUTROPHILS # (AUTO) 4.66 x10^3/uL (1.8-6.8); NEUTROPHILS % (AUTO) 74 % (42-75); POLYCHROMASIA 1+
[2017-10-11 04:41] LABS: TARGET CELLS 1+
[2017-10-11 04:42] LABS: <PLATELET ESTIMATE> ADEQUATE; LARGE PLATELETS 1+
[2017-10-11] MEDS: LEVOTHYROXINE 150 MCG TABLET PO SCH (06:25)
[2017-10-11] MEDS: DOPAMINE/D5W PMX 250 ML IV PRN ×2 (06:46→18:34)
[2017-10-11] MEDS ORDERED: PANTOPRAZOLE 40 MG IV IVPush SCH (07:30)
[2017-10-11] MEDS: SENNA/DOCUSATE TABLET PO SCH (11:01)
[2017-10-11] MEDS: LIOTHYRONINE 5 MCG TABLET PO SCH (11:01)
[2017-10-11] MEDS: RIFAXIMIN 550 MG TABLET PO SCH ×2 (11:05→21:10)
[2017-10-11] MEDS: LACTULOSE 20 GM/30 ML UDC PO SCH ×2 (11:05→21:10)
[2017-10-11] MEDS ORDERED: WARFARIN 2.5 MG TABLET PO-COUM ONE (18:00)
[2017-10-11] MEDS: ATORVASTATIN 20 MG TABLET PO SCH (21:10)
[2017-10-12 05:45] LABS: INTERNATIONAL NORMALIZED RATIO 3.06 (0.93-1.1); PROTHROMBIN TIME 31.1 Seconds (9.6-11.5)
[2017-10-12] MEDS: LEVOTHYROXINE 150 MCG TABLET PO SCH (05:49)
[2017-10-12 05:57] LABS: MEAN CORPUSCULAR HEMOGLOBIN 30.1 pg (27.0-34.8); MEAN CORPUSCULAR HGB CONC 32.5 g/dL (32.4-35.8); MEAN CORPUSCULAR VOLUME 92.8 fL (80-100); MEAN PLATELET VOLUME 9.1 fL (7.4-10.4); PLATELET COUNT 164 x10^3/uL (130-400); RED BLOOD COUNT 2.96 x10^6/uL (3.82-5.3)
[2017-10-12 06:01] LABS: ANION GAP 7 mmol/L (5-15); CALCIUM 7.6 mg/dL (8.5-10.1); CHLORIDE 99 mmol/L (98-107)
[2017-10-12 06:02] LABS: CREATININE 1.35 mg/dL (0.55-1.02)
[2017-10-12 06:24] LABS: BASOPHILS # (AUTO) 0.05 x10^3/uL (0-0.1); BASOPHILS % (AUTO) 1 % (0-1); EOSINOPHILS # (AUTO) 0.19 x10^3/uL (0-0.4); EOSINOPHILS % (AUTO) 4 % (1-7); LYMPHOCYTES # (AUTO) 0.57 x10^3/uL (1-3.4); LYMPHOCYTES % (AUTO) 11 % (22-44); MD SCAN; MONOCYTES # (AUTO) 0.78 x10^3/uL (0.2-0.8); MONOCYTES % (AUTO) 15 % (2-9); NEUTROPHILS # (AUTO) 3.69 x10^3/uL (1.8-6.8); NEUTROPHILS % (AUTO) 70 % (42-75)
[2017-10-12] MEDS: PANTOPROZOLE 40MG TABLET PO SCH (08:11)
[2017-10-12] MEDS: LIOTHYRONINE 5 MCG TABLET PO SCH (10:09)
[2017-10-12] MEDS: LACTULOSE 20 GM/30 ML UDC PO SCH ×2 (10:09→20:36)
[2017-10-12] MEDS: RIFAXIMIN 550 MG TABLET PO SCH ×2 (10:10→20:36)
[2017-10-12] MEDS: SENNA/DOCUSATE TABLET PO SCH (10:10)
[2017-10-12] MEDS: D5%-0.9% NACL 1,000 ML IV SCH ×2 (10:11→20:36)
[2017-10-12] MEDS: DOPAMINE/D5W PMX 250 ML IV PRN (20:36)
[2017-10-12] MEDS: ATORVASTATIN 20 MG TABLET PO SCH (20:36)
[2017-10-13] MEDS: LEVOTHYROXINE 150 MCG TABLET PO SCH (05:33)
[2017-10-13 05:43] LABS: INTERNATIONAL NORMALIZED RATIO 3.06 (0.93-1.1); PROTHROMBIN TIME 31.1 Seconds (9.6-11.5)
[2017-10-13 05:50] LABS: ANION GAP 8 mmol/L (5-15); CALCIUM 7.9 mg/dL (8.5-10.1); CHLORIDE 99 mmol/L (98-107); CREATININE 1.17 mg/dL (0.55-1.02)
[2017-10-13 06:03] LABS: MD YES; MEAN CORPUSCULAR HEMOGLOBIN 30.3 pg (27.0-34.8); MEAN CORPUSCULAR HGB CONC 32.7 g/dL (32.4-35.8); MEAN CORPUSCULAR VOLUME 92.6 fL (80-100); MEAN PLATELET VOLUME 9.2 fL (7.4-10.4); PLATELET COUNT 180 x10^3/uL (130-400); RED BLOOD COUNT 3.15 x10^6/uL (3.82-5.3); RED CELL DISTRIBUTION WIDTH 22.8 % (9.6-15.2)
[2017-10-13 06:05] LABS: BASOS#(MANUAL) 0.09 x10^3/uL (0-0.1); BASOS% (MANUAL) 2 % (0-1); EOS#(MANUAL) 0.18 x10^3/uL (0.0-0.4); EOS% (MANUAL) 4 % (1-7); LYMPH#(MANUAL) 0.68 x10^3/uL (1-3.4); LYMPHS% (MANUAL) 15 % (22-44); MONOS#(MANUAL) 0.32 x10^3/uL (0.3-2.7); MONOS% (MANUAL) 7 % (2-9); SEG#(MANUAL) 3.24 x10^3/uL (1.8-6.8); SEGS% (MANUAL) 72 % (42-75)
[2017-10-13 06:07] LABS: <PLATELET ESTIMATE> ADEQUATE; <PLT MORPHOLOGY> NORMAL PLT MORPH; ANISOCYTOSIS 1+; POLYCHROMASIA 1+
[2017-10-13] MEDS: PANTOPROZOLE 40MG TABLET PO SCH (10:27)
[2017-10-13] MEDS: RIFAXIMIN 550 MG TABLET PO SCH ×2 (10:28→20:48)
[2017-10-13] MEDS: SENNA/DOCUSATE TABLET PO SCH (10:29)
[2017-10-13] MEDS: LIOTHYRONINE 5 MCG TABLET PO SCH (10:32)
[2017-10-13] MEDS: LACTULOSE 20 GM/30 ML UDC PO SCH ×2 (10:34→20:48)
[2017-10-13] MEDS: D5%-0.9% NACL 1,000 ML IV SCH (10:43)
[2017-10-13 14:22] VITALS: BP 128/68
[2017-10-13] MEDS: FOLIC ACID 1 MG TABLET PO SCH (15:23)
[2017-10-13] MEDS: THIAMINE 100MG TABLET PO SCH (15:23)
[2017-10-13] MEDS ORDERED: WARFARIN 1 MG TABLET PO-COUM ONE (18:00)
[2017-10-13 20:27] VITALS: BP 123/65
[2017-10-13] MEDS: ATORVASTATIN 20 MG TABLET PO SCH (20:49)
[2017-10-14 01:13] VITALS: BP 109/66
[2017-10-14 05:17] LABS: INTERNATIONAL NORMALIZED RATIO 2.47 (0.93-1.1); PROTHROMBIN TIME 25.2 Seconds (9.6-11.5)
[2017-10-14 05:20] LABS: ALBUMIN 2.8 g/dL (3.4-5.0); ANION GAP 7 mmol/L (5-15); CHLORIDE 100 mmol/L (98-107); MEAN CORPUSCULAR HEMOGLOBIN 30.7 pg (27.0-34.8); MEAN CORPUSCULAR HGB CONC 33.2 g/dL (32.4-35.8); MEAN CORPUSCULAR VOLUME 92.4 fL (80-100); MEAN PLATELET VOLUME 8.9 fL (7.4-10.4); PLATELET COUNT 179 x10^3/uL (130-400); RED BLOOD COUNT 3.06 x10^6/uL (3.82-5.3); RED CELL DISTRIBUTION WIDTH 22.1 % (9.6-15.2)
[2017-10-14 05:25] LABS: ALANINE AMINOTRANSFERASE 37 U/L (12-78); ALKALINE PHOSPHATASE 247 U/L (45-117); BILIRUBIN,TOTAL 1.4 mg/dL (0.2-1.0); CREATININE 0.94 mg/dL (0.55-1.02); TOTAL PROTEIN 7.3 g/dL (6.4-8.2)
[2017-10-14] MEDS: LEVOTHYROXINE 150 MCG TABLET PO SCH (05:35)
[2017-10-14 06:16] LABS: LYMPHOCYTES % (AUTO) 14 % (22-44); NEUTROPHILS % (AUTO) 64 % (42-75)
[2017-10-14 06:17] LABS: BASOPHILS # (AUTO) 0.06 x10^3/uL (0-0.1); BASOPHILS % (AUTO) 1 % (0-1); EOSINOPHILS # (AUTO) 0.21 x10^3/uL (0-0.4); EOSINOPHILS % (AUTO) 5 % (1-7); LYMPHOCYTES # (AUTO) 0.67 x10^3/uL (1-3.4); MD SCAN; MONOCYTES # (AUTO) 0.79 x10^3/uL (0.2-0.8); MONOCYTES % (AUTO) 17 % (2-9); NEUTROPHILS # (AUTO) 3.04 x10^3/uL (1.8-6.8)
[2017-10-14 08:39] VITALS: BP 123/75
[2017-10-14] MEDS: SENNA/DOCUSATE TABLET PO SCH (08:40)
[2017-10-14] MEDS: PANTOPROZOLE 40MG TABLET PO SCH (08:51)
[2017-10-14] MEDS: FOLIC ACID 1 MG TABLET PO SCH (08:51)
[2017-10-14] MEDS: LIOTHYRONINE 5 MCG TABLET PO SCH (08:51)
[2017-10-14] MEDS: LACTULOSE 20 GM/30 ML UDC PO SCH ×2 (08:51→22:02)
[2017-10-14] MEDS: RIFAXIMIN 550 MG TABLET PO SCH ×2 (08:51→22:02)
[2017-10-14] MEDS: THIAMINE 100MG TABLET PO SCH (08:51)
[2017-10-14] MEDS: FUROSEMIDE 40 MG TABLET PO SCH (12:25)
[2017-10-14 13:08] VITALS: BP 115/76
[2017-10-14] MEDS ORDERED: WARFARIN 1 MG TABLET PO-COUM ONE (18:00)
[2017-10-14 19:36] VITALS: BP 133/87
[2017-10-14] MEDS: ATORVASTATIN 20 MG TABLET PO SCH (22:02)
[2017-10-15 01:15] VITALS: BP 121/63
[2017-10-15 05:26] LABS: INTERNATIONAL NORMALIZED RATIO 1.82 (0.93-1.1); PROTHROMBIN TIME 18.7 Seconds (9.6-11.5)
[2017-10-15] MEDS: LEVOTHYROXINE 150 MCG TABLET PO SCH (06:00)
[2017-10-15 07:47] VITALS: BP 127/78
[2017-10-15] MEDS: SENNA/DOCUSATE TABLET PO SCH (08:50)
[2017-10-15] MEDS: FUROSEMIDE 40 MG TABLET PO SCH (09:00)
[2017-10-15] MEDS: LACTULOSE 20 GM/30 ML UDC PO SCH (09:05)
[2017-10-15] MEDS: PANTOPROZOLE 40MG TABLET PO SCH (09:05)
[2017-10-15] MEDS: THIAMINE 100MG TABLET PO SCH (09:05)
[2017-10-15] MEDS: FOLIC ACID 1 MG TABLET PO SCH (09:05)
[2017-10-15] MEDS: LIOTHYRONINE 5 MCG TABLET PO SCH (09:05)
[2017-10-15] MEDS: RIFAXIMIN 550 MG TABLET PO SCH (09:06)
[2017-10-15] MEDS ORDERED: LIOT5TAB3 PO (12:18)
[2017-10-15] MEDS ORDERED: PANT40TA5 PO (12:18)
[2017-10-15] MEDS ORDERED: LACT20SO13 PO (12:18)
[2017-10-15] MEDS ORDERED: WARF2.5T PO-COUM (12:18)
[2017-10-15] MEDS ORDERED: SENN1TAB7 PO (12:18)
[2017-10-15] MEDS ORDERED: TRAM50TA2 PO (12:18)
[2017-10-15] MEDS ORDERED: FOLI-17 PO (12:18)
[2017-10-15 13:44] VITALS: BP 144/76
[2017-10-15] MEDS ORDERED: WARFARIN 2.5 MG TABLET PO-COUM ONE (18:00)
== END 2017-10-15 16:37 | disposition home or self-care (01) | DRG 441 ==
LOC: ED 15:01 → EDIP 16:10 → ICU 17:53 → 3NE 10-13 13:35
PROVIDERS: ADMIT Orthopaedic Surgery; ATTEND Hospitalist
PROC: 02HV33Z Insertion of Infusion Device into Superior Vena Cava, Percutaneous Approach (ICD-10-PCS; 2017-10-10)
PROC: B548ZZA Ultrasonography of Superior Vena Cava, Guidance (ICD-10-PCS; 2017-10-10)
PROC: 0T9B70Z Drainage of Bladder with Drainage Device, Via Natural or Artificial Opening (ICD-10-PCS; principal; 2017-10-11)
DX: K72.90 Hepatic failure, unspecified without coma (principal); E43 Unspecified severe protein-calorie malnutrition; N17.9 Acute kidney failure, unspecified; R57.0 Cardiogenic shock; E11.22 Type 2 diabetes mellitus with diabetic chronic kidney disease; D68.69 Other thrombophilia; E11.649 Type 2 diabetes mellitus with hypoglycemia without coma; R57.1 Hypovolemic shock; E87.5 Hyperkalemia; E87.1 Hypo-osmolality and hyponatremia; Z68.43 Body mass index [BMI] 50.0-59.9, adult; J98.11 Atelectasis; E66.01 Morbid (severe) obesity due to excess calories; D50.0 Iron deficiency anemia secondary to blood loss (chronic); N18.9 Chronic kidney disease, unspecified; R14.0 Abdominal distension (gaseous); E03.9 Hypothyroidism, unspecified; E87.6 Hypokalemia; I48.91 Unspecified atrial fibrillation; I51.7 Cardiomegaly; K74.60 Unspecified cirrhosis of liver; S81.801A Unspecified open wound, right lower leg, initial encounter; Z79.01 Long term (current) use of anticoagulants; Z79.899 Other long term (current) drug therapy; Z82.49 Family history of ischemic heart disease and other diseases of the circulatory system; Z83.3 Family history of diabetes mellitus; Z86.73 Personal history of transient ischemic attack (TIA), and cerebral infarction without residual deficits
CPT/HCPCS: 36415; 36556; 70450; 71045; 76705; 80048; 80053; 81001; 82140; 82533; 82803; 82805; 82962; 83605; 83735; 83880; 84100; 84439; 84443; 84481; 84484; 85025; 85610; 85730; 87040; 87081; 93005; 96365; 96375; J0461; J1265; J1815; J7042; C9113; J7040